=== PATIENT | female | born 1965 | race Caucasian/White ===

== ENCOUNTER 2023-04-13 13:38 | Emergency (ER) | payer OTHER ==
[2023-04-13 13:49] VITALS: BP 128/77; PULSE 88; RESP 18; TEMP 98.2; BMI 27.1
[2023-04-13] MEDS ORDERED: DIPHTH,PERTUSS(ACELL),TET 0.5 ML DISP.SYRIN IM ONE (14:55)
[2023-04-13] MEDS ORDERED: ACETAMINOPHEN 500 MG TABLET (FP) PO ONE (15:13)
[2023-04-13] MEDS ORDERED: ACETAMINOPHEN 500 MG TABLET (FP) ONE (15:14)
== END 2023-04-13 15:22 | disposition home or self-care (01) ==
LOC: JERFT 13:38
PROC: 0HQ0XZZ Repair Scalp Skin, External Approach (ICD-10-PCS; principal; 2023-04-13)
DX: S01.01XA Laceration without foreign body of scalp, initial encounter (principal); R51.9 Headache, unspecified; W22.8XXA Striking against or struck by other objects, initial encounter
CPT/HCPCS: 99282-25

== ENCOUNTER 2024-10-26 07:11 | Day surgery (SDC) | payer OTHER ==
[2024-10-15 14:20] VITALS: BMI 24.9
[2024-10-26 09:19] VITALS: TEMP 98
[2024-10-26 11:14] VITALS: RESP 18
[2024-10-26 12:01] VITALS: BP 122/80; PULSE 76
== END 2024-10-26 12:00 | disposition home or self-care (01) ==
LOC: JASU-ENDO 07:11
PROVIDERS: ATTEND Internal Medicine Gastroenterology
PROC: 0DBN8ZX Excision of Sigmoid Colon, Via Natural or Artificial Opening Endoscopic, Diagnostic (ICD-10-PCS; principal; 2024-10-26 10:00)
DX: Z12.11 Encounter for screening for malignant neoplasm of colon (principal); D12.7 Benign neoplasm of rectosigmoid junction; K64.8 Other hemorrhoids; Z86.0100 Personal history of colon polyps, unspecified
CPT/HCPCS: 88305-TC